=== PATIENT | male | born 1955 | race Caucasian/White ===

== ENCOUNTER 2020-04-12 15:37 | Outpatient (CLI) | payer OTHER | END 2020-04-12 15:38 | disposition home or self-care (01) | LOC: LAB.S 15:37 | PROVIDERS: ATTEND Physician Assistant | DX: Z53.9 Procedure and treatment not carried out, unspecified reason (principal) ==

== ENCOUNTER 2020-04-12 16:27 | Outpatient (CLI) | payer OTHER | END 2020-04-12 16:28 | disposition home or self-care (01) | LOC: LAB 16:27 | PROVIDERS: ATTEND Physician Assistant | DX: E87.5 Hyperkalemia (principal) | CPT/HCPCS: 36415; 84132 ==

== ENCOUNTER 2021-03-29 07:20 | Observation (INO) | payer MEDICARE, OTHER ==
[2021-03-29 07:48] LABS: BASOPHILS # (AUTO) 0.1 10^3/uL (0.0-0.1); BASOPHILS % (AUTO) 0.6 %; EOSINOPHILS # (AUTO) 0.2 10^3/uL (0.0-0.7); HGB - HEMOGLOBIN 12.5 g/dL (14.0-18.0); LYMPHOCYTES # (AUTO) 1.5 10^3/uL (1.5-3.5); LYMPHOCYTES % (AUTO) 10.2 %; MEAN CORPUSCULAR HEMOGLOBIN 32.1 pg (27.0-31.0); MEAN CORPUSCULAR HGB CONC 32.9 g/dL (32.0-36.0); MEAN CORPUSCULAR VOLUME 97.7 fL (80.0-94.0); MEAN PLATELET VOLUME 8.6 fL (7.4-11.4); MONOCYTES # (AUTO) 0.9 10^3/uL (0.0-1.0); MONOCYTES % (AUTO) 5.7 %; NEUTROPHILS # (AUTO) 12.5 10^3/uL (1.5-6.6); NEUTROPHILS % (AUTO) 82.1 %; PLT - PLATELET COUNT 460 10^3/uL (130-450); RED BLOOD COUNT 3.89 10^6/uL (4.70-6.10); RED CELL DISTRIBUTION WIDTH 12.9 % (12.0-15.0); WHITE BLOOD COUNT 15.2 x10^3/uL (4.8-10.8)
[2021-03-29 07:58] LABS: ALBUMIN 3.9 g/dL (3.2-5.5); ALBUMIN/GLOBULIN RATIO 1.3 (1.0-2.2); BILIRUBIN,TOTAL 1.4 mg/dL (0.2-1.0); CALCIUM 9.2 mg/dL (8.5-10.3); CREATININE 0.9 mg/dL (0.6-1.2); POTASSIUM 4.5 mmol/L (3.5-5.0)
[2021-03-29] MEDS ORDERED: KETOROLAC 30 MG/ML VIAL IVP STA (08:04)
[2021-03-29] MEDS ORDERED: SODIUM CHLORIDE 0.9% 1,000 ML IV STA (08:04)
--- NOTE | 2021-03-29 10:09 | ED Physician Documentation ---
PD HPI ABD PAIN - Stated complaint Stated Complaint: ABDOMINAL PX - Chief complaint Chief Complaint: Abd Pain - History obtained from History obtained from: Patient - History of Present Illness Timing - onset: Last night Timing - duration: Hours Timing - details: Gradual onset, Still present Quality: Sharp, Pain Location: RUQ Radiation: Chest Improved by: Laying still Worsened by: Moving, Breathing, Position, Palpation Associated symptoms: Constipation. No: Fever, Nausea, Vomiting, Hematemesis, Diarrhea, Dysuria Similar symptoms before: Has not had sx before Recently seen: Surgery - Additional information Additional information: 66-year-old male had surgery on his left knee at [facility] 1 week ago. About 4 days ago he began to experience some pain with his abdomen and he felt that this was likely just constipation and he was able to take care of that and despite that he had increasing pain and the pain is increased to where last night he was unable to sleep because of this pain. He denies any nausea or vomiting associated with it and he denies any increase in the pain after eating. He does have right upper quadrant pain and tenderness. He has not had fever. Review of Systems Constitutional: denies: Fever Eyes: denies: Decreased vision Ears: denies: Ear pain Nose: denies: Congestion Throat: denies: Sore throat Cardiac: denies: Chest pain / pressure Respiratory: denies: Dyspnea, Cough GI: reports: Abdominal Pain, Constipation. denies: Nausea, Vomiting : denies: Dysuria, Frequency Skin: denies: Rash Musculoskeletal: reports: Extremity pain. denies: Neck pain, Back pain Neurologic: denies: Generalized weakness, Focal weakness, Numbness PD PAST MEDICAL HISTORY - Present Medications Home Medications: Ambulatory Orders Medication Instructions Recorded Confirmed Acetaminophen [Tylenol Extra 500 mg PO TID PRN 03/29/21 03/29/21 Strength] Dabigatran [Pradaxa] 150 mg PO DAILY 03/29/21 03/29/21 Digoxin [Lanoxin] 125 mcg PO DAILY 03/29/21 03/29/21 Losartan Potassium 25 mg PO DAILY 03/29/21 03/29/21 Metoprolol Succinate 100 mg PO DAILY 03/29/21 03/29/21 Omeprazole Magnesium 20 mg PO DAILY 03/29/21 03/29/21 Ondansetron HCl [Zofran] 4 mg SL Q6HR PRN 03/29/21 03/29/21 Oxycodone HCl [Roxicodone] 5 mg PO TID PRN 03/29/21 03/29/21 Pregabalin [Lyrica] 75 mg PO DAILY 03/29/21 03/29/21 - Allergies Allergies/Adverse Reactions: Allergies Allergy/AdvReac Type Severity Reaction Status Date / Time No Known Drug Allergies Allergy Verified 03/29/21 07:29 PD ED PE NORMAL - Vitals Vital signs reviewed: Yes (hypertensive ) - General General: Alert and oriented X 3, No acute distress, Well developed/nourished - HEENT HEENT: Atraumatic, PERRL, EOMI - Neck Neck: Supple, no meningeal sign, No bony TTP - Cardiac Cardiac: RRR, No murmur - Respiratory Respiratory: No respiratory distress, Clear bilaterally - Abdomen Abdomen: Normal bowel sounds, Non distended, No organomegaly, Other (There is firmness to the abdominal wall over the RUQ. There is garding tenderness that is well localized and reproducible. ) - Back Back: No CVA TTP, No spinal TTP - Derm Derm: Normal color, Warm and dry, No rash - Extremities Extremities: No deformity, Other (The left knee is bandaged there is no inflammation surrounding it there are signs of prior surgery to the knee as well as the new incision. There is swelling in general to the left knee. No specific tenderness.) - Neuro Neuro: Alert and oriented X 3, animal trapper 2-12 intact, No motor deficit, No sensory deficit, Normal speech Eye Opening: Spontaneous Motor: Obeys Commands Verbal: Oriented GCS Score: 15 - Psych Psych: Normal mood, Normal affect Results - Vitals Vitals: Vital Signs - 24 hr 03/29/21 03/29/21 03/29/21 07:27 09:29 11:00 Temperature 36.5 C 36.6 C 36.6 C Heart Rate 88 81 69 Respiratory 20 16 16 Rate Blood Pressure 147/102 H 141/109 H 143/83 H O2 Saturation 99 100 99 03/29/21 13:00 Temperature 36.5 C Heart Rate 65 Respiratory 16 Rate Blood Pressure 135/78 H O2 Saturation 98 Oxygen O2 Source Room air - Labs Labs: Laboratory Tests 03/29/21 03/29/21 03/29/21 07:40 07:40 10:33 WBC 15.2 H RBC 3.89 L Hgb 12.5 L Hct 38.0 L MCV 97.7 H MCH 32.1 H MCHC 32.9 RDW 12.9 Plt Count 460 H MPV 8.6 Neut # (Auto) 12.5 H Lymph # (Auto) 1.5 Park # (Auto) 0.9 Eos # (Auto) 0.2 Baso # (Auto) 0.1 Absolute Nucleated RBC 0.00 Nucleated RBC % 0.0 Sodium 137 Potassium 4.5 Chloride 100 L Carbon Dioxide 28 Anion Gap 9.0 BUN 19 Creatinine 0.9 Estimated GFR (MDRD) 85 L Glucose 139 H Calcium 9.2 Total Bilirubin 1.4 H AST 25 ALT 34 Alkaline Phosphatase 82 Total Protein 7.0 Albumin 3.9 Globulin 3.1 Albumin/Globulin Ratio 1.3 Lipase 22 Urine Color Urine Clarity Urine pH Ur Specific [place] Urine Protein Urine Glucose (UA) Urine Ketones Urine Occult Blood Urine Nitrite Urine Bilirubin Urine Urobilinogen Ur Leukocyte Esterase Ur Microscopic Review Urine Culture Comments Nasal Adenovirus (PCR) NOT DETECTED Nasal B. parapertussis DNA (PCR) NOT DETECTED Nasal Coronavir 229E PCR NOT DETECTED Nasal Coronavir HKU1 PCR NOT DETECTED Nasal Coronavir NL63 PCR NOT DETECTED Nasal Coronavir OC43 PCR NOT DETECTED Nasal Enterovir/Rhinovir PCR NOT DETECTED Nasal Influenza B PCR NOT DETECTED Nasal Influenza A PCR NOT DETECTED Nasal Parainfluen 1 PCR NOT DETECTED Nasal Parainfluen 2 PCR NOT DETECTED Nasal Parainfluen 3 PCR NOT DETECTED Nasal Parainfluen 4 PCR NOT DETECTED Nasal RSV (PCR) NOT DETECTED Nasal B.pertussis DNA PCR NOT DETECTED Nasal C.pneumoniae (PCR) NOT DETECTED Brandon Human Metapneumo PCR NOT DETECTED Nasal M.pneumoniae (PCR) NOT DETECTED Nasal SARS-CoV-2 (PCR) NOT DETECTED 03/29/21 10:55 WBC RBC Hgb Hct MCV MCH MCHC RDW Plt Count MPV Neut # (Auto) Lymph # (Auto) Park # (Auto) Eos # (Auto) Baso # (Auto) Absolute Nucleated RBC Nucleated RBC % Sodium Potassium Chloride Carbon Dioxide Anion Gap BUN Creatinine Estimated GFR (MDRD) Glucose Calcium Total Bilirubin AST ALT Alkaline Phosphatase Total Protein Albumin Globulin Albumin/Globulin Ratio Lipase Urine Color YELLOW Urine Clarity CLEAR Urine pH 6.5 Ur Specific [place] 1.020 Urine Protein NEGATIVE Urine Glucose (UA) NEGATIVE Urine Ketones NEGATIVE Urine Occult Blood NEGATIVE Urine Nitrite NEGATIVE Urine Bilirubin NEGATIVE Urine Urobilinogen 1 (NORMAL) Ur Leukocyte Esterase NEGATIVE Ur Microscopic Review NOT INDICATED Urine Culture Comments NOT INDICATED Nasal Adenovirus (PCR) Nasal B. parapertussis DNA (PCR) Nasal Coronavir 229E PCR Nasal Coronavir HKU1 PCR Nasal Coronavir NL63 PCR Nasal Coronavir OC43 PCR Nasal Enterovir/Rhinovir PCR Nasal Influenza B PCR Nasal Influenza A PCR Nasal Parainfluen 1 PCR Nasal Parainfluen 2 PCR Nasal Parainfluen 3 PCR Nasal Parainfluen 4 PCR Nasal RSV (PCR) Nasal B.pertussis DNA PCR Nasal C.pneumoniae (PCR) Brandon Human Metapneumo PCR Nasal M.pneumoniae (PCR) Nasal SARS-CoV-2 (PCR) - Rads (name of study) u/s GB Radiology: Prelim report reviewed (Impression: 1. Trace pericholecystic fluid, which is nonspecific. Positive sonographic Erazo sign.), EMP read indepedently, See rad report CT ab/pel with Radiology: Prelim report reviewed (see MDM section for report) Procedures - Bedside sono Bedside sono by EMP: With use of bedside ultrasound the right upper quadrant is imaged the gallbladder is enlarged with a thickened wall at 0.45 cm and pericholecystic fluid. The gallbladder is specifically sonographically tender. Exam consistent with acute cholecystitis. PD MEDICAL DECISION MAKING - ED course Complexity details: reviewed results, re-evaluated patient, d/w patient, d/w wireless consultant (Sommer will admit for potential surgery tomorrrow. (Pradaxa yesterday)) ED course: 66-year-old male with a recent surgery to his left knee has 4 days of increasing right upper quadrant pain and has a hydropic gallbladder that is swollen tender with pericholecystic fluid and an elevated white blood cell count. He has cholecystitis and Dr. Novoa is consulted in the case will admit the patient to the hospital and evaluate him later this afternoon. CT ab/pel with Impression: 1. Gallbladder distention with prominence of the gallbladder wall and trace pericholecystic fluid. Findings suspicious for cholecystitis. Recommend correlation with clinical data and nuclear medicine HIDA scan if there is clinical concern for cholecystitis. Inflammatory stranding involving the soft tissues of the anterior and lateral proximal left thigh. Recommend correlation with clinical data to exclude cellulitis. Appendix is normal no free fluid or free air. No dilated loops of bowel. Departure - Departure Disposition: ED Place in Observation Clinical Impression: Cholecystitis Discharge Date/Time: 03/29/21 15:27
--- NOTE | 2021-03-29 10:50 | Ultrasound Report ---
PROCEDURE: Abdomen Limited INDICATIONS: RUQ pain TECHNIQUE: Real-time focused scanning was performed of the abdomen, with image documentation. COMPARISON: None available. FINDINGS: AORTA: The visualized abdominal aorta is normal. IVC: The visualized IVC is normal. LIVER: The liver is normal in size and contour. No significant abnormality. The portal vein is vega nt. PANCREAS: The visualized portions of the pancreas are normal. The pancreatic duct measures 1.7 mm Gallbladder and biliary tree: Gallbladder distention with minimal sludge. No gallbladder wall thick ening or shadowing gallstones. Trace pericholecystic fluid. The common bile duct measures 3.6 mm. Pos itive sonographic Erzao's sign. RIGHT KIDNEY: Normal in appearance with no hydronephrosis. Measuring 11.3 x 6 x 6.2 cm. No ascites. IMPRESSION: 1.Trace pericholecystic fluid, which is nonspecific. 2.Positive sonographic Erazo sign. Reviewed by: Khadar Harp MD on 03/29/2021 10:48 AM PDT Approved by: Khadar Harp MD on 03/29/2021 10:48 AM PDT Station ID: [id number]
[2021-03-29 11:12] LABS: BILIRUBIN,URINE NEGATIVE (NEGATIVE); CLARITY,URINE CLEAR (CLEAR); GLUCOSE, URINE (UA) NEGATIVE (NEGATIVE); KETONES,URINE (UA) NEGATIVE (NEGATIVE); LEUKOCYTE ESTERASE, URINE NEGATIVE (NEGATIVE); NITRITE,URINE NEGATIVE (NEGATIVE); OCCULT BLOOD,URINE NEGATIVE (NEGATIVE); PH,URINE 6.5 PH (5.0-7.5); PROTEIN,URINE NEGATIVE (NEGATIVE); UROBILINOGEN,URINE 1 (NORMAL) E.U./dL (NORMAL)
[2021-03-29 11:32] LABS: B. PARAPERTUSSIS- RESP PCR PAN NOT DETECTED; B. PERTUSSIS- RESP PCR PANEL NOT DETECTED; C. PNEUMONIAE- RESP PCR PANEL NOT DETECTED; CORONAVIRUS 229E-RESP PCR NOT DETECTED; CORONAVIRUS HKU1-RESP PCR NOT DETECTED; CORONAVIRUS NL63-RESP PCR NOT DETECTED; CORONAVIRUS OC43-RESP PCR NOT DETECTED; HUMAN METAPNEUMOVIRUS NOT DETECTED; INFLUENZA A- RESP PCR PANEL NOT DETECTED; INFLUENZA B - RESP PCR PANEL NOT DETECTED; M. PNEUMONIAE- RESP PCR PANEL NOT DETECTED; PARAINFLUENZA VIRUS 1 NOT DETECTED; PARAINFLUENZA VIRUS 2 NOT DETECTED; PARAINFLUENZA VIRUS 3 NOT DETECTED; PARAINFLUENZA VIRUS 4 NOT DETECTED; RHINOVIRUS/ENTEROVIRUS NOT DETECTED; RSV- RESP PCR PANEL NOT DETECTED; SARS-CoV-2 -RESP PCR PANEL NOT DETECTED
[2021-03-29] MEDS ORDERED: ONDANSETRON ODT 4 MG TABLET TL PRN (14:21)
[2021-03-29] MEDS ORDERED: ZOLPIDEM 5 MG TABLET PO PRN (14:21)
[2021-03-29] MEDS ORDERED: ONDANSETRON 4 MG/2 ML VIAL IVP PRN (14:21)
--- NOTE | 2021-03-29 14:35 | HISTORY & PHYSICAL EXAMINATION ---
Chief Complaint - Chief Complaint Chief Complaint: Abdominal pain History of Present Illness - Admitted From Admitted From:: ED - History Obtained From Records Reviewed: yes History obtained from: pt Exam Limitations: none - History of Present Illness HPI Comment/Other: Acute onset abdominal pain yesterday. No prior similar pain. Recent left knee surgery. He takes blood thinner, pradaxa since last year. He took his pradaxa yesterday. 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 He states his chf/ heart problem is improved. He gets much of his care in [place] through [facility]. History - Past Medical History Cardiovascular: reports: Hypertension, Atrial fibrillation - Past Surgical History Ortho: reports: Knee replacement Meds/Allgy - Home Medications Home Medications: Ambulatory Orders Medication Instructions Recorded Confirmed Acetaminophen [Tylenol Extra 500 mg PO TID PRN 03/29/21 03/29/21 Strength] Dabigatran [Pradaxa] 150 mg PO DAILY 03/29/21 03/29/21 Digoxin [Lanoxin] 125 mcg PO DAILY 03/29/21 03/29/21 Losartan Potassium 25 mg PO DAILY 03/29/21 03/29/21 Metoprolol Succinate 100 mg PO DAILY 03/29/21 03/29/21 Omeprazole Magnesium 20 mg PO DAILY 03/29/21 03/29/21 Ondansetron HCl [Zofran] 4 mg SL Q6HR PRN 03/29/21 03/29/21 Oxycodone HCl [Roxicodone] 5 mg PO TID PRN 03/29/21 03/29/21 Pregabalin [Lyrica] 75 mg PO DAILY 03/29/21 03/29/21 - Allergies Allergies/Adverse Reactions: Allergies Allergy/AdvReac Type Severity Reaction Status Date / Time No Known Drug Allergies Allergy Verified 03/29/21 07:29 Review of Systems - Other Findings Other Findings: 10 pt ros as above otherwise unremarkable Exam - Vital Signs Reviewed Vital Signs: Yes Vital Signs: Vital Signs x48h Temp Pulse Resp BP Pulse Ox 03/29/21 13:00 36.5 C 65 16 135/78 H 98 03/29/21 11:00 36.6 C 69 16 143/83 H 99 03/29/21 09:29 36.6 C 81 16 141/109 H 100 03/29/21 07:27 36.5 C 88 20 147/102 H 99 - Physical Exam General Appearance: positive: No acute distress, Alert Eyes Bilateral: positive: PERRL, EOMI, No scleral icterus ENT: positive: No signs of dehydration Neck: positive: No JVD Respiratory: positive: No respiratory distress Cardiovascular: positive: Regular rate & rhythm Abdomen: positive: No distention, Other (minimal tenderness. no peritoneal signs. benign abdomen) Neurologic/Psychiatric: positive: Oriented x3 Comments/Other: one of the more argumentative people I have seen in sometime. he repeatedly questioned the official ultrasound report and my judgment. Conclusion/Plan - Problem List (1) Abdominal pain Conclusion/Plan: He likely did have significant gallbladder pain. No apparent gallstones or inflammation. He is much improved; however, he does not feel he would do well at home at this time. Plan admit for ivf, bowel rest, close observation, further work up with ct scan. He has history of spontaneous dvt causing pulmonary embolus and chf last year. He is recovering from recent knee surgery. Plan continue anticoagulation. He is at very high risk for dvt and possible PE. He does not have an acute abdomen. Emergency or urgent surgery is not needed. He is not a good surgical candidate here. If he were to need gallbladder surgery in the future recommend it be done at a facility which can offer a higher level of care. - Lab Results Fish Bones: 03/29/21 07:40 03/29/21 07:40 - Diagnostic Imaging Results Diagnostic Imaging Results: positive: Read independently (no apparent gallbladder obstruction of inflammation no gallstones)
[2021-03-29] MEDS ORDERED: IOVERSOL 320 100 ML VIAL IVP ONE ×2 (14:43→21:18)
--- NOTE | 2021-03-29 15:17 | CT Report ---
PROCEDURE: Abdomen/Pelvis W INDICATIONS: abdominal pain CONTRAST: IV CONTRAST: Optiray 320 ml: 100 PO CONTRAST: *NO PO CONTRAST TECHNIQUE: After the administration of IV contrast, 5 mm thick sections acquired from the diaphragms to the symp hysis. 5 mm thick coronal and sagittal reformats were acquired. For radiation dose reduction, the f ollowing was used: automated exposure control, adjustment of mA and/or kV according to patient size. COMPARISON: Abdominal ultrasound 03/29/2021. FINDINGS: Image quality: Excellent. ABDOMEN: Lung bases: Lung bases are clear. Heart size is normal. Solid organs: Liver and spleen are normal in size and enhancement. Gallbladder is distended. There is prominence of the gallbladder wall. Trace pericholecystic fluid. Biliary system is non dilated. Pancreas enhances normally. No adrenal nodules. Kidneys demonstrate normal size and enhancement, wi thout hydronephrosis. Peritoneum and bowel: Bowel loops demonstrate normal wall thickness and caliber. No free fluid or a ir. The appendix is normal. Nodes and vessels: No retroperitoneal or mesenteric adenopathy by size criteria. Aorta and inferior vena cava are normal in size. Endovascular Miscellaneous: Small fat-containing umbilical hernia.. PELVIS: Genitourinary: Bladder wall thickness is normal. Vasectomy clips noted. Miscellaneous: No inguinal hernias or adenopathy. Calcifications in the common hamstring tendons rig ht greater than left concerning for chronic tendinitis. Stranding noted in the anterior and lateral s oft tissues of the proximal left thigh. Bones: No suspicious bony lesions. No vertebral body compression fractures. Spine degenerative disc disease and facet arthropathy are noted. IMPRESSION: 1. Gallbladder distention with prominence of the gallbladder wall and trace pericholecystic fluid. Fi nding suspicious for cholecystitis. Recommend correlation with clinical data and nuclear medicine HID A scan if there is clinical concern for cholecystitis. 2. Inflammatory stranding involving the soft tissues of the anterior and lateral proximal left thigh. Recommend correlation with clinical data to exclude cellulitis. 3. Appendix is normal. 4. No free fluid or free air. 5. No dilated loops of bowel. Reviewed by: Falguni Foley MD, PhD on 03/29/2021 3:16 PM PDT Approved by: Falguni Foley MD, PhD on 03/29/2021 3:16 PM PDT Station ID: [id number]
[2021-03-29] MEDS: HYDROmorphone 0.5 MG/0.5 ML SYRINGE IVP PRN ×2 (15:50→19:09)
[2021-03-29] MEDS: D5.45NS W/20 MEQ KCL 1,000 ML IV SCH (15:57)
[2021-03-29] MEDS: PIPERACILLIN/TAZOBACTAM 3.375 GM in SODIUM CHLORIDE 0.9% MINIBAG 100 ML IV SCH (19:25)
[2021-03-29] MEDS: oxyCODONE 5 MG TABLET PO PRN (20:57)
[2021-03-29] MEDS: ACETAMINOPHEN 325 MG TABLET PO PRN (20:58)
[2021-03-30] MEDS: PIPERACILLIN/TAZOBACTAM 3.375 GM in SODIUM CHLORIDE 0.9% MINIBAG 100 ML IV SCH ×2 (00:26→05:56)
[2021-03-30] MEDS: D5.45NS W/20 MEQ KCL 1,000 ML IV SCH ×2 (00:26→08:48)
[2021-03-30] MEDS: oxyCODONE 5 MG TABLET PO PRN ×3 (01:47→10:45)
[2021-03-30] MEDS: ACETAMINOPHEN 325 MG TABLET PO PRN ×2 (01:49→06:01)
[2021-03-30 04:32] LABS: HCT - HEMATOCRIT 30.4 % (42.0-52.0); HGB - HEMOGLOBIN 9.8 g/dL (14.0-18.0); MEAN CORPUSCULAR HEMOGLOBIN 32.2 pg (27.0-31.0); MEAN CORPUSCULAR HGB CONC 32.2 g/dL (32.0-36.0); MEAN PLATELET VOLUME 8.5 fL (7.4-11.4); RED BLOOD COUNT 3.04 10^6/uL (4.70-6.10); WHITE BLOOD COUNT 7.6 x10^3/uL (4.8-10.8)
[2021-03-30 04:57] LABS: ALBUMIN 3.1 g/dL (3.2-5.5); ALBUMIN/GLOBULIN RATIO 1.2 (1.0-2.2); BILIRUBIN,TOTAL 1.3 mg/dL (0.2-1.0); CALCIUM 8.5 mg/dL (8.5-10.3); TOTAL PROTEIN 5.6 g/dL (6.7-8.2)
[2021-03-30] MEDS ORDERED: PANTOPRAZOLE 40 MG TABLET PO SCH (07:00)
[2021-03-30] MEDS ORDERED: PREGABALIN 25 MG CAPSULE PO SCH (09:00)
[2021-03-30] MEDS ORDERED: ENOXAPARIN 40 MG/0.4 ML SYRINGE SUBQ SCH (09:00)
[2021-03-30] MEDS ORDERED: DIGOXIN 125 MCG TABLET PO SCH (09:00)
[2021-03-30] MEDS ORDERED: LOSARTAN 50 MG TABLET PO SCH (09:00)
[2021-03-30] MEDS ORDERED: METOPROLOL SUCCINATE 50 MG TABLET PO SCH (09:00)
[2021-03-30] MEDS ORDERED: DABIGATRAN 75 MG CAPSULE PO SCH (10:00)
--- NOTE | 2021-03-30 10:52 | Discharge Plan ---
Discharge Plan Problem Reviewed?: Yes Disposition: Home, Self Care Condition: Good Prescriptions: Amox/Clav 875/125 [Augmentin 875/125 Tab] 1 tablet PO Q8H 5 Days #15 tablet oxyCODONE/ACET 5/325 [Percocet 5 mg/325 mg] 1 each PO Q4-6H PRN #20 tablet PRN Reason: Pain Ondansetron Odt [Zofran Odt] 4 mg PO Q6H PRN #15 tablet PRN Reason: Nausea / Vomiting Diet: Soft (mostly liquids until pain much improved. low fat diet for 2 weeks.) Activity Restrictions: No Restrictions Shower Restrictions: No Driving Restrictions: No Health Concerns: recent knee surgery. history blood clots. acute gallbladder inflammation. Plan of Treatment: gallbladder pain improved. home on careful low fat diet with close follow up Assessment: improved gallbladder pain and white blood cell count Additional Instructions or Follow Up instructions: call with any concerns, ie not improving. follow up with surgery as desired [phone] No Smoking: If you smoke, Please STOP! Call for help. Follow-up with: MALINDA FAUST MD [Primary Care Provider] -
--- NOTE | 2021-03-30 10:55 | DISCHARGE SUMMARY ---
"Discharge Summary Admit Date: 03/29/21 Discharge Date: 04/20/21 Discharging Provider: billy randolph md Code Status: Attempt Resuscitation Discharge Facility Name: [facility] - DIAGNOSES Admission Diagnoses: acute gallbladder inflammation recent knee surgery history of blood clots including pulmonary embolus Discharge Diagnoses with Status of Each Condition: home in good condition. pain improved. afebrile - HPI History of Present Illness: acute gallbladder pain and inflammation day prior to admission. improving. - CONSULTS | PROCEDURES Procedures: medical management acute cholecystitis - HOSPITAL COURSE Hospital Course: quickly improving. home on careful liquid/ low fat diet with close follow up - ALLERGIES Allergies/Adverse Reactions: Allergies Allergy/AdvReac Type Severity Reaction Status Date / Time No Known Drug Allergies Allergy Verified 03/29/21 07:29 - MEDICATIONS Home Medications: Ambulatory Orders Medication Instructions Recorded Confirmed Acetaminophen [Tylenol Extra 500 mg PO TID PRN 03/29/21 03/29/21 Strength] Dabigatran [Pradaxa] 150 mg PO BID 03/29/21 03/30/21 Digoxin [Lanoxin] 125 mcg PO DAILY 03/29/21 03/29/21 Losartan Potassium 25 mg PO DAILY 03/29/21 03/29/21 Metoprolol Succinate 100 mg PO DAILY 03/29/21 03/29/21 Omeprazole Magnesium 20 mg PO DAILY 03/29/21 03/29/21 Ondansetron HCl [Zofran] 4 mg SL Q6HR PRN 03/29/21 03/29/21 Oxycodone HCl [Roxicodone] 5 mg PO TID PRN 03/29/21 03/29/21 Pregabalin [Lyrica] 75 mg PO DAILY 03/29/21 03/29/21 Amox/Clav 875/125 [Augmentin 1 tablet PO Q8H 5 Days #15 tablet 03/30/21 875/125 Tab] Ondansetron Odt [Zofran Odt] 4 mg PO Q6H PRN #15 tablet 03/30/21 oxyCODONE/ACET 5/325 [Percocet 5 1 each PO Q4-6H PRN #20 tablet 03/30/21 mg/325 mg] - PHYSICAL EXAM AT DISCHARGE General Appearance: positive: No acute distress, Alert Eyes Bilateral: positive: PERRL, EOMI, No scleral icterus Neck: positive: No JVD Respiratory: positive: No respiratory distress Abdomen: positive: No distention, Tenderness (mild tenderness right upper quadrant) Neurologic/Psychiatric: positive: Oriented x3 - LABS Result Diagrams: 03/30/21 04:10 03/30/21 04:10 - FOLLOW UP Follow Up: surgery as desired call to make an appointment [phone] you should follow up with your primary care provider. you may need a referral to see [facility]"
[2021-03-30 12:17] VITALS: BP 112/68
[2021-03-31] MEDS ORDERED: DABIGATRAN 75 MG CAPSULE PO SCH (09:00)
== END 2021-03-30 12:00 | disposition home or self-care (01) ==
LOC: ED 07:20 → MS3 14:21
PROVIDERS: ADMIT Surgery; ATTEND Surgery
DX: K81.9 Cholecystitis, unspecified (principal); I10 Essential (primary) hypertension; I48.91 Unspecified atrial fibrillation; Z20.822 Contact with and (suspected) exposure to COVID-19; Z96.652 Presence of left artificial knee joint; Z79.02 Long term (current) use of antithrombotics/antiplatelets; Z86.711 Personal history of pulmonary embolism; Z86.718 Personal history of other venous thrombosis and embolism; Z86.79 Personal history of other diseases of the circulatory system
CPT/HCPCS: 36415; 74177; 76705; 80053; 81003; 83690; 85025; 85027; 87631; 96365; 96375; 96376; 99284; 99285; A9270; G0378; J1170; Q9967; 0202U; 81001; 87086

== ENCOUNTER 2021-06-25 10:00 | Outpatient (CLI) | payer MEDICARE, OTHER ==
[2021-06-25 20:24] LABS: PSA FREE 0.8 ng/mL (0.16-2.81); PSA TOTAL 4.35 ng/mL (0.000-2.000)
== END 2021-06-25 10:01 | disposition home or self-care (01) ==
LOC: LAB 10:00
DX: R97.20 Elevated prostate specific antigen [PSA] (principal)
CPT/HCPCS: 36415; 84153; 84154

== ENCOUNTER 2022-10-24 11:10 | Outpatient (CLI) | payer MEDICARE, OTHER ==
[2022-10-24 12:03] LABS: FOLATE 16.89 ng/mL (5.90 - >24.8)
== END 2022-10-24 11:11 | disposition home or self-care (01) ==
LOC: LAB 11:10
PROVIDERS: ATTEND Student in an Organized Health Care Education/Training Program
DX: C61 Malignant neoplasm of prostate (principal); G62.9 Polyneuropathy, unspecified
CPT/HCPCS: 36415; 82607; 82746; 84153

== ENCOUNTER 2023-01-20 12:05 | Outpatient (CLI) | payer MEDICARE, OTHER | END 2023-01-20 12:06 | disposition home or self-care (01) | LOC: LAB 12:05 | PROVIDERS: ATTEND Family Medicine | DX: R20.0 Anesthesia of skin (principal) | CPT/HCPCS: 36415; 82607; 83921 ==